=== PATIENT | female | born 1995 | race Caucasian/White ===

== ENCOUNTER 2019-04-19 23:29 | Emergency (ER) | payer OTHER ==
[~2019-04-19] VITALS: Ht 157.5 cm; Wt 80.2 kg
[~2019-04-19 23:29] MED LIST: DOXY-214 PO; IBUP800T48 PO
[2019-04-19 23:50] VITALS: BP 121/84; PULSE 63; RESP 16; Ht 157.5 cm; Wt 80.2 kg
[2019-04-20] MEDS ORDERED: HYDROCODONE/APAP (10/325) TAB PO ONE (02:30)
[2019-04-20] MEDS ORDERED: LIDOCAINE 1% (MDV) 20 ML INJ SC ONE (02:30)
[2019-04-20] MEDS ORDERED: DIPHTH/TET/ACEL PERTUSS (ADULT) 0.5 ML VIAL IM* ONE (02:30)
[2019-04-20] MEDS ORDERED: BACITRACIN 0.9 GM OINT TOP ONE (04:00)
[2019-04-20] MEDS ORDERED: BACITRACIN 0.5%/ZINC 28.35 GM OINT TOP ONE (04:30)
== END 2019-04-20 05:11 | disposition left against medical advice (07) ==
LOC: FTE 23:29
DX: L60.0 Ingrowing nail (principal); Z23 Encounter for immunization
CPT/HCPCS: 11765; 90715; Z7610; 90471